=== PATIENT | female | born 1985 | race Caucasian/White ===

== ENCOUNTER 2020-07-12 04:16 | Inpatient (IN) | payer OTHER ==
[2020-07-12] MEDS ORDERED: Nalbuphine 10 MG/1 ML Vial IM PRN (05:41)
[2020-07-12] MEDS ORDERED: Ondansetron 4 MG/2 ML SDV IVPUSH PRN (05:42)
[2020-07-12] MEDS ORDERED: Famotidine 20 MG Tab PO PRN (05:42)
[2020-07-12] MEDS ORDERED: Lactated Ringers 1,000 ML IV ONE (05:42)
[2020-07-12] MEDS ORDERED: Sodium Chloride 0.9% 10 ML Syringe FLUSH PRN (05:42)
[2020-07-12] MEDS ORDERED: Tranexamic Acid 1,000 MG in Sodium Chloride 0.9% 100 ML IV PRN (05:42)
[2020-07-12] MEDS ORDERED: Carboprost Tromethamine 250 MCG/1 ML Amp IM PRN (05:42)
[2020-07-12] MEDS ORDERED: Misoprostol 400 MCG (4 X 100 MCG TAB) RECTAL PRN (05:42)
[2020-07-12] MEDS ORDERED: Methylergonovine 0.2 MG/1 ML Amp IM PRN (05:42)
[2020-07-12] MEDS ORDERED: Lidocaine 1% 30 ML SDV INJECT PRN (05:42)
[2020-07-12] MEDS ORDERED: fentaNYL 100 MCG/2 ML SDV IVPUSH PRN (05:42)
[2020-07-12] MEDS ORDERED: Oxytocin/Normal Saline 30 UNIT/500 ML BAG IV SCH (05:45)
[2020-07-12] MEDS ORDERED: Promethazine 25 MG/ML SDV IM PRN (05:47)
[2020-07-12] MEDS ORDERED: ePHEDrine 50 MG/ML SDV IVPUSH PRN (05:47)
[2020-07-12] MEDS ORDERED: Naloxone 2 MG/2 ML Syringe IVPUSH PRN (05:47)
[2020-07-12] MEDS ORDERED: Lactated Ringers 500 ML IV SCH (06:00)
[2020-07-12] MEDS: Lactated Ringers 1,000 ML IV SCH ×3 (06:30→07:49)
[2020-07-12] MEDS ORDERED: EPINEPHrine 1 MG/1 ML Amp ONE (06:43)
[2020-07-12] MEDS ORDERED: fentaNYL 100 MCG/2 ML SDV ONE (06:43)
[2020-07-12] MEDS ORDERED: Sodium Bicarbonate 4.2% 2.5 MEQ/5 ML SDV ONE (06:44)
[2020-07-12] MEDS ORDERED: ePHEDrine 50 MG/ML SDV ONE (07:11)
--- NOTE | 2020-07-12 07:11 | PCM.SN.2 ---
- Free Text/Narrative Note: Intrathecal. Sitting position, sterile prep and drape. 1% lidocaine with bicarb for skinwheal to L2 L3 interspace. Introducer, 24 ga pencan x 1. Pos CSF, neg heme, neg parasthesia. 0.1 ml 1:1000 pf epi, 20 mcg pf sufenta, 30 mcg pf fentanyl, 0.4 ml pf NS and 6 mg of 0.75% pf marcaine injected after CSF aspiration. Pt to L lateral position. Procedure time 0640 to 0710
[2020-07-12] MEDS: Famotidine 20 MG/2 ML SDV IVPUSH SCH ×2 (07:51→15:48)
--- NOTE | 2020-07-12 09:01 | HP ---
PRIMARY OBSTETRIC PROVIDER: Caty Srinivasan MD. HISTORY OF PRESENT ILLNESS/CHIEF COMPLAINT: Marly Tovar is a 34-year-old, G1, P0, at 40 weeks 2 days based on last menstrual period of 10/05/2019 and confirmed with an 18 week 5 day ultrasound with estimated date of delivery of 07/11/2020. She presents for evaluation of contractions starting around 0145 hours this morning, initially coming every 10 minutes involving the entire abdomen, rated as severe, 8/10, waking the patient from sleep. The patient called the Obstetric Department nurse who advised her to monitor, drink fluids and potentially take a bath before presenting to the Obstetrics Department. Patient waited approximately 30 minutes before the contractions increased in intensity and frequency, occurring every 7 minutes. The patient decided she would like to come in for evaluation because she and her live approximately 45 minutes away. Contractions are associated with nausea, vomiting multiple times since the onset. Denies leakage of vaginal fluid or vaginal bleeding. Has had sweep of membranes twice, 1 and 2 weeks ago and lost her mucus plug approximately 1 week ago. OBSTETRIC HISTORY: GYNECOLOGIC HISTORY: No history of HSV. LABS: Blood type is A positive. Antibody screen negative. Rubella antibody positive with antibody index of 1.4. Syphilis nonreactive. Hep B surface antigen nonreactive. HIV nonreactive. Gonorrhea and chlamydia not detected. Hep C antibody nonreactive. Glucose 1 hour passed at 117 mg/dL. GBS negative. Her hemoglobin was 11.5 on 04/06/2020, platelets 259 on the same date. PAST MEDICAL HISTORY: 1. Attention deficit hyperactivity disorder, on Vyvanse, stopped in the 1st trimester. PAST SURGICAL HISTORY: 1. [place] teeth extraction. PRIOR TO ADMISSION MEDICATIONS: vitamin, Unisom, intermittent iron supplementation, intermittent vitamin C supplementation, intermittent B6 supplementation, Zofran PRN. ALLERGIES: No known allergies. SOCIAL HISTORY: Denies use of tobacco, alcohol, or drugs. The patient is a never smoker. Occasionally used alcohol prior to being , none while . 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 Lives in [place], [place] with . FAMILY HISTORY: Noncontributory. REVIEW OF SYSTEMS: General: No recent illness, fevers, chills, malaise. Dermatologic: No changes to skin, rashes or lesions. Respiratory: No shortness of breath. Cardiovascular: No chest pain. Gastrointestinal: Positive for constipation, nausea, and vomiting. Genitourinary: No vaginal bleeding, change in vaginal discharge. Neuromuscular: No muscle or joint pain. Neurologic: No headaches or changes in vision. PHYSICAL EXAMINATION: Vital Signs on Admission: temperature 97.1 degrees F, blood pressure 132/83 mmHg, pulse 70 bpm General Appearance: Generally well appearing, alert, breathing through contractions. Lungs: Clear to auscultation bilaterally with no adventitial breath sounds. Heart: Regular rate and rhythm with normal S1, S2. Abdomen: Gravid. FHT present. FHT: Category 1 with baseline 140s with moderate variability, positive for accelerations. No decelerations. Tocometer revealing contractions 3 every 10 minutes. Pelvic Exam: Normal female external genitalia. Cervix dilated to 5 cm, head down, and bag of water intact per nursing report Extremities: Scant peripheral edema. No redness or tension in the calves. Skin: Normal color and turgor. No rashes or lesions. ASSESSMENT: 1. Marly Tovar is a 34-year-old, G1, P0, at 40 weeks 2 days based on last menstrual period of 10/05/2019, confirmed with an 18 week 5 day ultrasound. Estimated date of delivery 07/26/2020. 2. Presenting in active labor. 3. Maternal anemia, antepartum with hemoglobin on admission 11.9. 4. Group B Streptococcus negative. 5. G1, P0. Maternal well being currently is good. FHT category 1. Labor progressing as expected. We will admit to Labor and Delivery, continue to monitor patient as needed with cervical checks when clinically indicated. Will offer p.r.n. Zofran for nausea relief and continue to discuss pain management with the patient as needed. Patient is receiving Nitrox currently and will decide between intramuscular versus intrathecal anesthesia as labor progresses. The patient was discussed with Dr. Jensen. This note is being scribed on behalf of Dr. Jensen. [facility] /[id number] [facility]
[2020-07-12] MEDS ORDERED: Benzocaine/Menthol 20%-0.5% Spray 56 GM Canister TOP PRN (10:26)
[2020-07-12] MEDS: Ibuprofen 800 MG Tab PO PRN ×2 (11:34→21:05)
[2020-07-12] MEDS: Docusate Sodium 100 MG Cap PO PRN ×2 (11:34→21:04)
[2020-07-12] MEDS: Simethicone 80 MG Tab.Chew PO PRN (21:04)
--- NOTE | 2020-07-12 21:23 | DEL ---
DATE: 07/12/2020 PREOPERATIVE DIAGNOSES: 1. G1, P0, at 40 weeks 2 days based on a last menstrual period of 10/05/2019, confirmed with an 18-week 5-day ultrasound, with an estimated date of delivery of 07/11/2020. 2. Presenting in active labor around 4:30 a.m. 3. Maternal anemia antepartum, hemoglobin on admission 11.9. 4. Group B Streptococcus negative. 5. ABO blood type A positive, rubella immune. 6. Nausea and vomiting. POSTOPERATIVE DIAGNOSES: 1. G1, now para 1-0-0-1, with an intrauterine at 40 weeks 2 days based on a last menstrual period of 10/05/2019, confirmed with an 18-week 5- day ultrasound, with an estimated date of delivery of 07/11/2020, status post spontaneous vaginal delivery. 2. Artificial rupture of membranes. 3. Maternal anemia antepartum, estimated blood loss 400 mL. 4. Group B Streptococcus negative. 5. ABO blood type A positive, rubella immune. 6. Second-degree perineal laceration. 7. Meconium-stained amniotic fluid upon delivery. PROCEDURES PERFORMED: Nonstress test, intrathecal x1, artificial rupture of membranes, second-degree perineal laceration repair accomplished in the usual fashion. ANESTHESIA/ANALGESIA: Nitrox gas, intrathecal x1. ESTIMATED BLOOD LOSS: 400 mL. FINDINGS: The patient delivered a viable female infant with scores of 8 and 9 at 1 and 5 minutes respectively, weighing 3820 g, 8 pounds 7 ounces. SUMMARY OF EVENTS: On this date, at 9:56, this 1, now para 1-0-0-1, group B Streptococcus negative mother delivered a viable female weighing 3820 g with scores of 8 and 9 at 1 and 5 minutes respectively. Delivery was a spontaneous vaginal delivery accomplished under a sterile field with intrathecal anesthesia. Position was CINDY with the left arm anterior. Complications from umbilical cord: None. Amniotic fluid was meconium stained at delivery. Following delivery and accomplishment of patent airway and stimulation, the infant was placed on the mother's chest. Cord clamping was delayed until pulsations stopped. The cord was then clamped and cut by the father of the baby present at the bedside. A placenta with a 3-vessel cord was delivered spontaneously intact and completely. Cord blood was collected prior to placental delivery. The perineum had a second-degree laceration repaired in the usual fashion as well as a right-sided periurethral abrasion in which hemostasis was achieved with pressure and did not require repair. 30 units of Pitocin was administered IV after placental delivery. Estimated blood loss was less than 400 mL. The infant and mother are recovering well in the patient's room at this time. The is at the mother's breast as the mother initiates . The father of the baby is present as well. We will continue to follow and initiate and cares as appropriate. This note is being scribed on behalf of Dr. Caty Jensen. [facility] [place] /[id number] MTDRaul
[2020-07-13] MEDS: Ibuprofen 800 MG Tab PO PRN ×3 (05:15→23:08)
[2020-07-13] MEDS: Simethicone 80 MG Tab.Chew PO PRN ×2 (05:15→21:00)
[2020-07-13] MEDS: Prenatal Multivitamin with Calcium/Folic Acid/Iron Tab PO SCH (08:46)
[2020-07-13] MEDS: Acetaminophen 325 MG Tab PO PRN ×3 (08:46→21:00)
[2020-07-13] MEDS: Docusate Sodium 100 MG Cap PO PRN ×2 (08:46→21:00)
[2020-07-13] MEDS: Ferrous Sulfate 325 MG Tab PO SCH (08:47)
--- NOTE | 2020-07-13 15:01 | PN ---
DATE: 07/13/2020 SUBJECTIVE: The patient is fatigued this morning. She did not sleep well overnight and labored throughout the night the prior evening. Otherwise, she is doing well and has no complaints. She denies any shortness of breath, chest pain, nausea, vomiting, fevers, or chills. She has been ambulating about her room without difficulty and without lightheadedness. She has voided, no bowel movement as of yet. Tolerating oral intake without difficulty. Her lochia is appropriate and denies any uncontrolled pain. is going well from the patient's perspective. She has been feeding at the breast every 2 to 3 hours and maintaining latch for 15 to 35 minutes per breast each feeding. She feels some breast engorgement. OBJECTIVE: Current Vital Signs: Temperature 98.7, pulse 87 beats per minute, blood pressure 110/68 mmHg, respiratory rate 16 breaths per minute, O2 sat by pulse oximetry 97%. General: The patient is arousable to voice, tired, but appears in no acute distress, and has an appropriate affect. Abdomen: Soft, nontender. Fundus is firm, approximately 3 fingerbreadths below the umbilicus. Extremities: Nontender. No overlying skin lesions and non-concerning edema of the lower extremities. LABORATORY DATA: Hematology this morning: white blood cell count 12.3, red blood cell count 3.09, hemoglobin 9.8, hematocrit 30.6, MCV 99.0, MCH 31.7, MCHC 32.0, platelet count 229. ASSESSMENT AND PLAN: Marly Tovar is a G1, now P1-0-0-1. The patient is status post spontaneous vaginal delivery. 1. The patient seems to be meeting maternal wellbeing milestones but still working on learning techniques. 2. [place] wellbeing is reassuring as well with a change in weight of -3.7%, staying in the nursery and exclusively at this time. 3. We will continue routine cares and advance activity as tolerated. 4. Disposition: We will encourage the patient to stay through the night for discharge tomorrow morning on day #2. 5. Contraception: Will be discussed at 6 weeks care visit. 6. Anemia of acute blood loss. Hemoglobin on admission was 11.9. hemoglobin 9.8. The patient is currently asymptomatic and exam findings are benign. We will continue routine cares unless otherwise indicated. [facility] /[id number] MTDRaul
[2020-07-13] MEDS: Famotidine 20 MG/2 ML SDV IVPUSH SCH (15:07)
[2020-07-14] MEDS: Ferrous Sulfate 325 MG Tab PO SCH ×2 (00:28→08:52)
[2020-07-14] MEDS: Ibuprofen 800 MG Tab PO PRN (06:50)
[2020-07-14] MEDS: Acetaminophen 325 MG Tab PO PRN (06:51)
[2020-07-14] MEDS: Prenatal Multivitamin with Calcium/Folic Acid/Iron Tab PO SCH (08:52)
[2020-07-14] MEDS: Docusate Sodium 100 MG Cap PO PRN (08:52)
[2020-07-14] MEDS: Famotidine 20 MG/2 ML SDV IVPUSH SCH (09:00)
--- NOTE | 2020-07-14 09:08 | DISCH ---
REASON FOR ADMISSION: Labor. OBSTETRIC HISTORY: G1, P0-0-0-0 prior to admission. DELIVERY: 1. Sex: Female. 2. Weight: 3820 g, 8 pounds 7 ounces. 3. Scores: 8 and 9 at one and five minutes respectively. PROCEDURES: Nonstress test, intrathecal x1, artificial rupture of membranes, second-degree perineal laceration repair accomplished in the usual fashion. PROBLEM LIST: 1. G1, now P1-0-0-1 with an intrauterine at 40 weeks 2 days based on last menstrual period of 10/05/2019 and confirmed with an 18 weeks 5 days ultrasound with an estimated date of delivery of 07/11/2020, status post spontaneous vaginal delivery. 2. Maternal anemia antepartum, acute blood loss anemia. 3. Group B Streptococcus negative. 4. ABO blood type A positive, rubella immune. 5. Second-degree perineal laceration. 6. Meconium-stained amniotic fluid upon delivery. CONSULTS AND REFERRALS: Anesthesia. PROGRESS NOTE: Subjective: The patient complains of some soreness and fatigue, relieved by Motrin. She did sleep better last night and is feeling like her fatigue is improving with rest. She denies chest pain, shortness of breath, nausea, vomiting, fevers, chills, changes to bowel or bladder. She is voiding without difficulty. Still has not had a bowel movement, but is passing gas. Ambulating without difficulty, denies any lightheadedness. Tolerating oral intake. Her lochia is appropriate and pain currently well controlled. Objective: Current Vital Signs, temperature 97.7 degrees Fahrenheit, pulse 65 beats per minute, blood pressure 123/76, respiratory rate 16 breaths per minute, O2 saturation by pulse oximetry 100%. Laboratory Data: 07/13/2020: White blood cell count 12.3, red blood cell count 3.09, hemoglobin 9.8, hematocrit 30.6, MCV 99.0, MCH 31.7, MCHC 32.0, platelets 229. SARS-COV-2 RNA ([place]) negative. Physical Examination: General: The patient appears alert, in no acute distress, appropriate affect, sitting up in bed and infant throughout exam. Abdomen: Soft, nontender. Fundus is firm 3 fingerbreadths below the umbilicus. Extremities: Nontender. Scant lower extremity edema. ASSESSMENT AND PLAN: Marly Tovar is a 34-year-old, G1, now para 1-0-0-1 female, status post spontaneous vaginal delivery. 1. Maternal well-being: Meeting appropriate milestones. 2. well-being: New born nursery, . DISPOSITION: 1. Discharged home on day #2. 2. Contraception: We will discuss at 6 weeks visit. PRELIMINARY DISCHARGE MEDICATIONS: 1. vitamin. 2. Iron 325 mg once daily. HOSPITAL COURSE: The patient presented for evaluation of contractions starting around 01:45 on the morning of 07/12/2020. Contractions were associated with nausea, vomiting. Denied any leakage of vaginal fluid or vaginal bleeding, was found to be in labor following cervical exam and FHT monitoring. The patient's labor progressed as expected without difficulty. She delivered a viable female weighing 3820 g with scores of 8 and 9 at one and five minutes respectively at 9:56 on the morning of 07/12/2020. Delivery significant only for meconium-stained amniotic fluid at delivery and second-degree perineal laceration repaired in usual fashion. Estimated blood loss was less than 400 mL. and mother recovered as expected post delivery. DISCHARGE DISPOSITION: Home. FOLLOWUP APPOINTMENTS: Six weeks visit with Dr. Caty Srinivasan. This note is being scribed on behalf of Dr. Caty Srinivasan. [facility] /[id number] MTDD
== END 2020-07-14 10:55 | disposition home or self-care (01) | DRG 806 ==
LOC: DL.OBCHECK 04:16 → DL.OB 05:14 → OBSVTOIN 09:56 → DL.OB 09:56
PROVIDERS: ADMIT Family Medicine; ATTEND Family Medicine
PROC: 10E0XZZ Delivery of Products of Conception, External Approach (ICD-10-PCS; principal; 2020-07-12)
PROC: 0KQM0ZZ Repair Perineum Muscle, Open Approach (ICD-10-PCS; 2020-07-12)
PROC: 10907ZC Drainage of Amniotic Fluid, Therapeutic from Products of Conception, Via Natural or Artificial Opening (ICD-10-PCS; 2020-07-12)
PROC: 3E0R3BZ Introduction of Anesthetic Agent into Spinal Canal, Percutaneous Approach (ICD-10-PCS; 2020-07-12)
PROC: 00HU33Z Insertion of Infusion Device into Spinal Canal, Percutaneous Approach (ICD-10-PCS; 2020-07-12)
DX: O77.0 Labor and delivery complicated by meconium in amniotic fluid (principal); D62 Acute posthemorrhagic anemia; Z37.0 Single live birth; Z3A.40 40 weeks gestation of pregnancy; O99.02 Anemia complicating childbirth; O70.1 Second degree perineal laceration during delivery; F90.9 Attention-deficit hyperactivity disorder, unspecified type; O99.344 Other mental disorders complicating childbirth
CPT/HCPCS: 01967; 36415; 51701; 59409; 85027; A9270-GY; J2405; J2590; J3490; J7120; U0002

== ENCOUNTER 2021-12-14 07:51 | Inpatient (IN) | payer OTHER ==
[~2021-12-14 07:51] MED LIST: Acetaminophen 325 MG Tab PO PRN; Carboprost Tromethamine 250 MCG/1 ML Amp IM PRN; Lactated Ringers 1,000 ML IV ONE; Lactated Ringers 500 ML IV SCH; Lidocaine 1% 30 ML SDV INJECT PRN; Methylergonovine 0.2 MG/1 ML Amp IM PRN; Misoprostol 400 MCG (4 X 100 MCG TAB) RECTAL PRN; Nalbuphine 20 MG/1 ML Amp IM PRN; Naloxone 2 MG/2 ML Syringe IVPUSH PRN; Ondansetron 4 MG/2 ML SDV IVPUSH PRN; Oxytocin/Normal Saline 30 UNIT/500 ML BAG IV SCH; Promethazine 25 MG/ML SDV IM PRN; Sodium Chloride 0.9% 10 ML Syringe FLUSH PRN; Tranexamic Acid 1,000 MG in Sodium Chloride 0.9% 100 ML IV PRN; ePHEDrine 50 MG/ML SDV IVPUSH PRN; fentaNYL 100 MCG/2 ML SDV IVPUSH PRN
[2021-12-14] MEDS ORDERED: Sodium Chloride 0.9% 10 ML Syringe FLUSH SCH (09:00)
[2021-12-14] MEDS: Lactated Ringers 1,000 ML IV SCH ×2 (10:21→14:49)
[2021-12-14] MEDS: Ondansetron 4 MG/2 ML SDV IVPUSH PRN ×2 (10:29→14:04)
[2021-12-14] MEDS: fentaNYL 100 MCG/2 ML SDV ONE ×2 (14:05→17:54)
[2021-12-14] MEDS ORDERED: EPINEPHrine 1 MG/ML SDV ONE (14:11)
[2021-12-14] MEDS ORDERED: Sodium Bicarbonate 4.2% 2.5 MEQ/5 ML SDV ONE (14:12)
[2021-12-14] MEDS ORDERED: Tranexamic Acid 1,000 MG in Sodium Chloride 0.9% 100 ML IV PRN (16:33)
[2021-12-14] MEDS ORDERED: Benzocaine/Menthol 20%-0.5% Spray 78 GM Cannister TOP PRN (16:33)
[2021-12-14] MEDS ORDERED: Misoprostol 400 MCG (4 X 100 MCG TAB) RECTAL PRN (16:33)
[2021-12-14] MEDS ORDERED: Famotidine 20 MG Tab PO PRN (16:33)
[2021-12-14] MEDS ORDERED: Simethicone 80 MG Tab.Chew PO PRN (16:33)
[2021-12-14] MEDS ORDERED: Sodium Chloride 0.9% 10 ML Syringe FLUSH PRN (16:33)
[2021-12-14] MEDS ORDERED: Carboprost Tromethamine 250 MCG/1 ML Amp IM PRN (16:33)
[2021-12-14] MEDS: Ferrous Sulfate 325 MG Tab PO SCH (20:40)
[2021-12-14] MEDS: Docusate Sodium 100 MG Cap PO PRN (20:40)
[2021-12-14] MEDS ORDERED: Ibuprofen 800 MG Tab PO ONE (23:45)
[2021-12-15] MEDS: Acetaminophen 325 MG Tab PO PRN ×4 (05:47→22:18)
[2021-12-15] MEDS: Docusate Sodium 100 MG Cap PO PRN ×2 (09:30→22:18)
[2021-12-15] MEDS: Ibuprofen 800 MG Tab PO PRN ×2 (09:30→17:03)
[2021-12-15] MEDS: Prenatal Multivitamin with Calcium/Folic Acid/Iron Tab PO SCH (09:30)
[2021-12-15] MEDS: Ferrous Sulfate 325 MG Tab PO SCH ×2 (09:31→22:18)
[2021-12-16] MEDS: Ibuprofen 800 MG Tab PO PRN ×2 (02:30→09:57)
[2021-12-16] MEDS: Acetaminophen 325 MG Tab PO PRN (06:12)
[2021-12-16] MEDS: Docusate Sodium 100 MG Cap PO PRN (09:57)
[2021-12-16] MEDS: Prenatal Multivitamin with Calcium/Folic Acid/Iron Tab PO SCH (09:57)
[2021-12-16] MEDS: Ferrous Sulfate 325 MG Tab PO SCH (09:58)
== END 2021-12-16 10:50 | disposition home or self-care (01) | DRG 807 ==
LOC: DL.OB 07:51 → OBSVTOIN 16:06
PROVIDERS: ADMIT Family Medicine; ATTEND Family Medicine
PROC: 10E0XZZ Delivery of Products of Conception, External Approach (ICD-10-PCS; principal; 2021-12-14)
PROC: 0KQM0ZZ Repair Perineum Muscle, Open Approach (ICD-10-PCS; 2021-12-14)
PROC: 10907ZC Drainage of Amniotic Fluid, Therapeutic from Products of Conception, Via Natural or Artificial Opening (ICD-10-PCS; 2021-12-14)
DX: O99.02 Anemia complicating childbirth (principal); Z37.0 Single live birth; Z3A.39 39 weeks gestation of pregnancy; O70.1 Second degree perineal laceration during delivery; D64.9 Anemia, unspecified; Z20.822 Contact with and (suspected) exposure to COVID-19
CPT/HCPCS: 01967; 36415; 51701; 59409; 85027; A9270-GY; J2405; J2590; J3010; J7120; U0002

== ENCOUNTER 2024-06-22 23:48 | Inpatient (IN) | payer OTHER ==
[2024-06-23] MEDS ORDERED: Tranexamic Acid 1,000 MG in Sodium Chloride 0.9% 100 ML IV PRN ×2 (00:07→15:07)
[2024-06-23] MEDS ORDERED: fentaNYL 100 MCG/2 ML SDV IVPUSH PRN (00:07)
[2024-06-23] MEDS ORDERED: Acetaminophen 325 MG Tab PO PRN (00:07)
[2024-06-23] MEDS ORDERED: Sodium Chloride 0.9% 10 ML Syringe FLUSH PRN (00:07)
[2024-06-23] MEDS ORDERED: Carboprost Tromethamine 250 MCG/1 ML Amp IM PRN ×2 (00:07→15:07)
[2024-06-23] MEDS ORDERED: Methylergonovine 0.2 MG/1 ML Amp IM PRN (00:07)
[2024-06-23 00:41] LABS: HEMATOCRIT 31.9 % (37.0-47.0); HEMOGLOBIN 9.9 g/dL (12.0-16.0); MEAN CORPUSCULAR HEMOGLOBIN 29.6 pg (27.0-34.0); MEAN CORPUSCULAR VOLUME 95.2 fL (80-100); RED BLOOD CELL COUNT 3.35 10^6/uL (4.2-5.4); WHITE BLOOD CELL COUNT,WBC 13.9 10^3/uL (5.0-10.0)
[2024-06-23] MEDS: hydrOXYzine HCl 25 MG Tab PO PRN (01:39)
[2024-06-23] MEDS: Lactated Ringers 1,000 ML IV ONE (06:00)
[2024-06-23] MEDS: Ondansetron 4 MG/2 ML SDV IVPUSH PRN (06:20)
[2024-06-23] MEDS ORDERED: Lidocaine 2% 20 ML MDV ONE (08:17)
[2024-06-23] MEDS: Lactated Ringers 1,000 ML IV SCH (09:16)
[2024-06-23] MEDS: Oxytocin/Lactated Ringers 30 UNIT/500 ML BAG IV SCH (11:16)
[2024-06-23] MEDS ORDERED: fentaNYL 100 MCG/2 ML SDV EPIDUR ONE ×2 (14:55→19:35)
[2024-06-23] MEDS: Ibuprofen 800 MG Tab PO PRN (14:55)
[2024-06-23] MEDS: Ibuprofen 800 MG Tab ONE (14:55)
[2024-06-23] MEDS ORDERED: Misoprostol 100 MCG Tab RECTAL PRN (15:07)
[2024-06-23] MEDS ORDERED: Docusate Sodium 100 MG Cap PO PRN (15:07)
[2024-06-23] MEDS ORDERED: Benzocaine/Menthol 20%-0.5% Spray 78 GM Cannister TOP PRN (15:07)
[2024-06-23] MEDS ORDERED: Bisacodyl 10 MG Supp RECTAL PRN (15:07)
[2024-06-23] MEDS ORDERED: Simethicone 80 MG Tab.Chew PO PRN (15:07)
[2024-06-23] MEDS ORDERED: Witch Hazel Medicated Pads 100/Jar TOP PRN (15:07)
[2024-06-23 17:40] LABS: HEMOGLOBIN A1C 5.6 % (<5.7)
[2024-06-23] MEDS: Sertraline 50 MG Tab PO SCH (18:12)
[2024-06-23] MEDS: Lidocaine 1% 30 ML SDV INJECT ONE (18:57)
[2024-06-23] MEDS: Acetaminophen 325 MG Tab PO PRN (19:29)
[2024-06-23] MEDS ORDERED: Ropivacaine 100 ML EPIDUR ONE (19:35)
[2024-06-23] MEDS ORDERED: Ketorolac 30 MG/ML SDV IVPUSH ONE (19:35)
[2024-06-23] MEDS ORDERED: Tranexamic Acid 1,000 MG/10 ML Vial IV ONE (19:35)
[2024-06-23] MEDS ORDERED: Ondansetron 4 MG/2 ML SDV IV ONE (19:35)
[2024-06-23] MEDS ORDERED: Oxytocin/Normal Saline 30 UNIT/500 ML BAG IV ONE (19:35)
[2024-06-23] MEDS ORDERED: Ibuprofen 800 MG Tab PO SCH (23:00)
[2024-06-24] MEDS ORDERED: Ferrous Sulfate 325 MG Tab PO SCH (08:00)
[2024-06-24] MEDS ORDERED: Sertraline 50 MG Tab PO SCH (09:00)
[2024-06-24] MEDS ORDERED: Prenatal Multivitamin with Calcium/Folic Acid/Iron Tab PO SCH (09:00)
== END 2024-06-23 19:36 | disposition home or self-care (01) | DRG 807 ==
LOC: DL.OBCHECK 23:48 → DL.OB 06-23 00:06 → OBSVTOIN 06-23 11:16
PROVIDERS: ADMIT Family Medicine; ATTEND Family Medicine
PROC: 10E0XZZ Delivery of Products of Conception, External Approach (ICD-10-PCS; principal; 2024-06-23)
PROC: 10907ZC Drainage of Amniotic Fluid, Therapeutic from Products of Conception, Via Natural or Artificial Opening (ICD-10-PCS; 2024-06-23)
PROC: 0HQ9XZZ Repair Perineum Skin, External Approach (ICD-10-PCS; 2024-06-23)
PROC: 3E0R3BZ Introduction of Anesthetic Agent into Spinal Canal, Percutaneous Approach (ICD-10-PCS; 2024-06-23)
PROC: 00HU33Z Insertion of Infusion Device into Spinal Canal, Percutaneous Approach (ICD-10-PCS; 2024-06-23)
DX: O99.214 Obesity complicating childbirth (principal); Z37.0 Single live birth; O70.0 First degree perineal laceration during delivery; O99.344 Other mental disorders complicating childbirth; F32.A Depression, unspecified; F90.9 Attention-deficit hyperactivity disorder, unspecified type; O99.62 Diseases of the digestive system complicating childbirth; K59.00 Constipation, unspecified; O43.193 Other malformation of placenta, third trimester; O99.02 Anemia complicating childbirth; Z3A.37 37 weeks gestation of pregnancy
CPT/HCPCS: 36415; 51702; 59409; 83036; 85027; A9270-GY; J1885; J2405; J2590; J2795; J3010; J7120